=== PATIENT | female | born 1960 | race Caucasian/White ===

== ENCOUNTER → 2020-08-22 15:42 | Outpatient (CLI) | payer OTHER, SELFPAY ==
--- NOTE | ~2020-08-22 | MM_ITS ---
EXAMINATION: MM screening [facility] BI w olga HISTORY: Screening mammogram TECHNIQUE: Craniocaudal and mediolateral oblique 3-D tomosynthesis images were obtained and synthetic 2-D images were generated. CAD analysis was submitted and interpreted. COMPARISON: 06/28/2019, 03/02/2018, 01/30/2017 bilateral digital screening mammogram examinations BREAST PARENCHYMAL COMPOSITION: There are scattered areas of fibroglandular density. FINDINGS: There is no evidence of suspicious mass, calcification, or architectural distortion to sugg est malignancy in either breast. There has been no suspicious interval change. IMPRESSION: 1. No mammographic evidence of malignancy. 2. Recommend routine screening mammography in one year. BI-RADS Category 1: Negative Reviewed, dictated and finalized at location A. NDS CLEANER
== END ==
PROVIDERS: PCP Internal Medicine; Visit Provider Internal Medicine
DX: Z12.31 Encounter for screening mammogram for malignant neoplasm of breast (principal)
CPT/HCPCS: 77063; 77067

== ENCOUNTER → 2021-12-11 15:38 | Outpatient (CLI) | payer OTHER, SELFPAY ==
--- NOTE | ~2021-12-11 | MM_ITS ---
EXAMINATION: MM screening [facility] BI w olga HISTORY: Screening mammogram TECHNIQUE: Craniocaudal and mediolateral oblique 3-D tomosynthesis images were obtained and synthetic 2-D images were generated. CAD analysis was submitted and interpreted. COMPARISON: 08/22/2020, 06/28/2019, 03/02/2018 bilateral screening mammogram examinations BREAST PARENCHYMAL COMPOSITION: There are scattered areas of fibroglandular density. FINDINGS: There is no evidence of suspicious mass, calcification, or architectural distortion to sugg est malignancy in either breast. There has been no suspicious interval change. IMPRESSION: 1. No mammographic evidence of malignancy. 2. Recommend routine screening mammography in one year. BI-RADS Category 1: Negative Reviewed, dictated and finalized at location A.
== END ==
PROVIDERS: PCP Internal Medicine; Visit Provider Internal Medicine
DX: Z12.31 Encounter for screening mammogram for malignant neoplasm of breast (principal)
CPT/HCPCS: 77063; 77067

== ENCOUNTER 2023-05-20 03:18 | Day surgery (SDC) | payer MEDICARE, SELFPAY ==
[2023-05-11 14:16] VITALS: BMI 25.0
--- NOTE | 2023-05-18 09:19 | SUR.PREOP ---
Patient called regarding upcoming procedure. Reviewed preop instructions, appointment times, and procedure prep.
--- NOTE | 2023-05-19 16:33 | PM.HPGS ---
History of Present Illness History of Present Illness Consent: Risks, benefits, and alternatives have been discussed and questions answered. Patient agrees to proceed with procedure. Chief complaint: neoplasm screening Narrative: Gabby Bolivar is a 63 year old female referred for colon cancer screening. She has a family history of colon cancer. She has had polyps removed for self. The last procedure that can find documentation of was 15 years ago here. her last colonoscopy she states was 6 years ago in [place]. Review of Systems Review of Systems: All systems reviewed & are unremarkable except as noted in HPI and below PMFSH Past Medical History Medical History FH: bilateral hip replacements Generalized osteoarthritis of multiple sites Inflammatory arthritis (~2018) Surgical History Surgical History H/O section Family History Family History Father Depression Hypertension Family history of chronic obstructive pulmonary disease Family history of diabetes mellitus in first degree relative Family history of lung cancer Family history of coronary artery disease Social History Social History Smoking packs per day: 1 Smoking cigarettes per day: 20.0 Years smoked: 25 Smoking pack-years: 25.00 Smoking status: Former smoker Tobacco type: cigarettes Second hand tobacco smoke exposure: Yes Smoking end date: 07/13/15 Alcohol intake: current Drinks per week: 5 Substance use type: marijuana Other substance usage details: daily gummie Living arrangements: with family Spiritual care concerns: No Meds Home Medications and Allergies Home Medications Medication Instructions Recorded Confirmed Type cholecalciferol (vitamin D3) 125 125 mcg PO DAILY 09/12/20 05/11/23 History mcg (5,000 unit) capsule multivitamin 1 tablet PO DAILY 09/12/20 05/11/23 History diphenhydramine HCl 25 mg capsule 25 mg PO ONCE PRN Itching 01/29/23 05/11/23 History (Benadryl) simvastatin 5 mg tablet 5 mg PO DAILY #90 tabs 03/13/23 05/11/23 Rx Allergies Allergy/AdvReac Type Severity Reaction Status Date / Time No Known Allergies Allergy Mild Verified 05/20/23 09:26 Exam Resp: Auscultation: clear to auscultation bilaterally Cardio: Rate: regular rate Rhythm: regular rhythm GI: GI Palp: Yes Soft to palpation and No Tenderness to palpation present (GI) Assessment and Plan Assessment and plan (1) Screening for colon cancer: Code(s): Z12.11 - Encounter for screening for malignant neoplasm of colon Status: Acute Assessment and Plan: Colonoscopy with possible biopsy or polypectomy or cautery or injection of substances.
[2023-05-20 09:27] VITALS: BP 155/68; PULSE 63; RESP 20; TEMP 36.2; O2SAT 100; BMI 25.0
[2023-05-20] MEDS: LACTATED RINGERS 1,000 ML 150 ML IV CONT (09:33)
--- NOTE | 2023-05-20 10:20 | WPDANESEPPF ---
Anes - Initial Pre Proc Eval Procedure: Operation Date: 05/20/23 10:45 Proposed Procedures p Screening Colonoscopy - Wesly Zaidi MD Date/Time: 05/20/23 10:20 Surgeon: Wesly Zaidi MD Pre Op Diagnosis: neoplasm screening Patient Data Age: 63 Gender: F Height: 1.65 m Weight: 68.3 kg Last Vital Signs Temp 97.1 F L 05/20/23 09:27 Pulse 63 05/20/23 09:27 Resp 20 05/20/23 09:27 BP 155/68 H 05/20/23 09:27 Pulse Ox 100 05/20/23 09:27 O2 Del Method Room Air 05/20/23 09:27 Allergies Allergy/AdvReac Type Severity Reaction Status Date / Time No Known Allergies Allergy Mild Verified 05/20/23 09:26 Home Medications Medication Instructions Recorded Confirmed Type cholecalciferol (vitamin D3) 125 125 mcg PO DAILY 09/12/20 05/11/23 History mcg (5,000 unit) capsule multivitamin 1 tablet PO DAILY 09/12/20 05/11/23 History diphenhydramine HCl 25 mg capsule 25 mg PO ONCE PRN Itching 01/29/23 05/11/23 History (Benadryl) simvastatin 5 mg tablet 5 mg PO DAILY #90 tabs 03/13/23 05/11/23 Rx Patient hx anesthesia problems: none Family hx anesthesia problems: none Results Review: All pre-operative results and documents have been reviewed as part of the pre-operative evaluation. [facility] Past Medical History Medical History FH: bilateral hip replacements Generalized osteoarthritis of multiple sites Inflammatory arthritis (~2018) Surgical History Surgical History H/O section Family History Family History Father Depression Hypertension Family history of chronic obstructive pulmonary disease Family history of diabetes mellitus in first degree relative Family history of lung cancer Family history of coronary artery disease Social History Social History Smoking packs per day: 1 Smoking cigarettes per day: 20.0 Years smoked: 25 Smoking pack-years: 25.00 Smoking status: Former smoker Tobacco type: cigarettes Second hand tobacco smoke exposure: Yes Smoking end date: 07/13/15 Alcohol intake: current Drinks per week: 5 Substance use type: marijuana Other substance usage details: daily gummie Living arrangements: with family Spiritual care concerns: No Anes - Eval Final PreProcedure Day of Procedure 05/20/23 10:20 Patient weight: normal Heart: regular rate and rhythm Lungs: clear to auscultation Airway: Mallampati scale class II Neurological: alert and oriented Last oral intake: >/= 8 hours ASA classification: II Emergent: no Anesthetic plan: proceed Anesthesia type and monitoring: general GIVS and standard monitoring Results Review: All pre-operative results and documents have been reviewed as part of the pre-operative evaluation. Informed Consent: The patient's anesthetic plan and its attendant risks and benefits were discussed with the patient/family/POA. Questions were solicited and answers provided to the satisfaction of the patient/family/POA.
[2023-05-20 10:47] VITALS: BP 138/71; PULSE 60; RESP 21; O2SAT 100
[2023-05-20 10:57] VITALS: BP 149/74; PULSE 56; RESP 20; O2SAT 100
[2023-05-20 11:07] VITALS: BP 164/73; PULSE 52; RESP 16; O2SAT 100
== END 2023-05-20 11:26 | disposition home or self-care (01) ==
PROVIDERS: PCP Family Medicine; Visit Provider Internal Medicine Gastroenterology
PROC: 0DJD8ZZ Inspection of Lower Intestinal Tract, Via Natural or Artificial Opening Endoscopic (ICD-10-PCS; CPT 45378; principal; 2023-05-20 10:45)
DX: Z12.11 Encounter for screening for malignant neoplasm of colon (principal); K57.30 Diverticulosis of large intestine without perforation or abscess without bleeding; F12.90 Cannabis use, unspecified, uncomplicated; Z86.010 Personal history of colon polyps; Z87.891 Personal history of nicotine dependence; Z80.0 Family history of malignant neoplasm of digestive organs; Z80.1 Family history of malignant neoplasm of trachea, bronchus and lung; Z82.49 Family history of ischemic heart disease and other diseases of the circulatory system
CPT/HCPCS: G0105; J2704; J7120

== ENCOUNTER → 2023-06-15 10:27 | Outpatient (CLI) | payer MEDICARE, SELFPAY ==
--- NOTE | ~2023-06-15 | MM_ITS ---
EXAMINATION: MM screening [facility] BI w olga HISTORY: Screening mammogram TECHNIQUE: Craniocaudal and mediolateral oblique 3-D tomosynthesis images were obtained and synthetic 2-D images were generated. CAD analysis was submitted and interpreted. COMPARISON: 12/11/2021, 08/22/2020, 06/28/2019 BREAST PARENCHYMAL COMPOSITION: There are scattered areas of fibroglandular density. FINDINGS: No suspicious mass, calcification, or architectural distortion are identified in either skyla ast to suggest malignancy. There has been no suspicious interval change. IMPRESSION: 1. No mammographic evidence of malignancy. 2. Recommend routine screening mammography in one year. BI-RADS Category 1: Negative Reviewed, dictated and finalized at location A. IRON WORKER
== END ==
PROVIDERS: PCP Nurse Practitioner; Visit Provider Nurse Practitioner
DX: Z12.31 Encounter for screening mammogram for malignant neoplasm of breast (principal)
CPT/HCPCS: 77063; 77067

== ENCOUNTER → 2023-08-03 11:49 | Outpatient (CLI) | payer MEDICARE, SELFPAY ==
--- NOTE | ~2023-08-03 | XR_ITS ---
XR shoulder RT min 2V 08/03/2023 12:10 Indication: Right shoulder pain Procedure: 4 views right shoulder Comparison: No prior studies for comparison. Findings: There is mild polyarticular osteoarthritis. No fracture or traumatic malalignment. No soft tissue abnormality. No foreign bodies. Impression: 1: Mild polyarticular osteoarthritis. Reviewed, dictated and finalized at location B. BPC ARCHITECT Impression: 1: Mild polyarticular osteoarthritis.
== END ==
PROVIDERS: PCP Nurse Practitioner; Visit Provider Nurse Practitioner
DX: M19.011 Primary osteoarthritis, right shoulder (principal)
CPT/HCPCS: 73030

== ENCOUNTER 2023-10-09 07:33 | Outpatient (CLI) | payer MEDICARE, SELFPAY ==
--- NOTE | ~2023-10-09 | US_ITS ---
US thyroid INDICATION: Abnormal lab works. TECHNIQUE: Real-time sonographic images of the thyroid gland were obtained. COMPARISON: Automated exposure control and iterative reconstruction technique were employed. FINDINGS: The right thyroid lobe measures 6 x 2.6 x 2.2 cm. The left thyroid lobe measures 6.6 x 2.9 x 2.7 cm. Thyroid gland is diffusely heterogeneous. There are multiple bilateral thyroid masses. Lar gest dominant mass in the right lobe is hypoechoic, solid, wider than tall measuring 3.2 x 2.3 x 2 cm , smoothly marginated without echogenic foci, TR 4. Largest dominant mass in the left lobe measures 3 .6 x 2.5 x 2.3 cm and is solid, hypoechoic, wider than tall, smoothly marginated without echogenic fo ci, TR 4. IMPRESSION: 1. Multiple bilateral thyroid masses. Recommend ultrasound-guided fine-needle aspiration biopsy of d ominant bilateral thyroid masses. Reviewed, dictated and finalized at location B. IMPRESSION: 1. Multiple bilateral thyroid masses. Recommend ultrasound-guided fine-needle aspiration biopsy of dominant bilateral thyroid masses.
== END 2023-10-09 07:34 ==
LOC: MICIMG 07:34
PROVIDERS: PCP Nurse Practitioner; Visit Provider Nurse Practitioner
DX: R79.89 Other specified abnormal findings of blood chemistry (principal); E04.2 Nontoxic multinodular goiter
CPT/HCPCS: 76536

== ENCOUNTER 2023-11-04 12:08 | Outpatient (CLI) | payer MEDICARE, SELFPAY ==
--- NOTE | ~2023-11-04 | US_ITS ---
EXAMINATION: US FNA w image guidance DATE: 11/04/2023 13:38 INDICATION: Nontoxic single thyroid nodule TECHNIQUE: A time-out was performed to verify the patient's name, date of , and procedure to be performed . The procedure and its benefits and risks were discussed with the patient. Risks specifically discus sed included bleeding and infection. The patient understood the risks and agreed to proceed. The neck was prepped and draped in the usual sterile manner. Attention was first turned to the right thyroid nodule. 6 mL 1% lidocaine was used for local anesthesia. 6 passes were made with a 25G needle into the lesion. Appropriate needle location was documented with continuous sonographic guidance. Attenti on was then turned to the contralateral left thyroid nodule. An additional 4 mm of 1% lidocaine was u sed for local anesthesia. 6 passes were made with a 25G needle into the lesion. Appropriate needle l ocation was documented with continuous sonographic guidance. Sterile bandages were applied. There we re no immediate complications. FINDINGS: Grayscale ultrasound images demonstrate biopsy needles advanced into a 3.3 cm mass at the mid to infe rior right thyroid lobe and subsequently into a 3.2 cm mass at the mid to inferior left thyroid lobe. IMPRESSION: 1. Successful ultrasound-guided fine needle aspiration of a 3.3 cm TI RADS 4 right thyroid mass. 2. Successful ultrasound guided fine needle aspiration of a 3.2 cm TI RADS 4 left thyroid mass. Reviewed, dictated and finalized at location A. IMPRESSION: 1. Successful ultrasound-guided fine needle aspiration of a 3.3 cm TI RADS 4 r ight thyroid mass. 2. Successful ultrasound guided fine needle aspiration of a 3.2 cm TI RADS 4 le ft thyroid mass.
--- NOTE | ~2023-11-04 | US_ITS ---
Please refer to ultrasound Y needle aspiration report dated 11/04/2023 for details. Reviewed, dictated and finalized at location B.
== END 2023-11-04 12:09 | disposition home or self-care (01) ==
LOC: ANHIMG 12:09
PROVIDERS: PCP Family Medicine; Visit Provider Family Medicine
DX: E04.1 Nontoxic single thyroid nodule (principal)
CPT/HCPCS: 10005; 10006; 88172; 88173; 88305

== ENCOUNTER 2024-02-01 09:33 | Outpatient (CLI) | payer MEDICARE, SELFPAY ==
[2024-02-01 14:48] LABS: Hematocrit 42.3 % (37.0-47.0); Hemoglobin 14.7 g/dL (12.0-15.0); Mean Corpuscular HGB Conc 34.8 g/dl (32-36); Mean Corpuscular Hemoglobin 32.9 pg (26-34); Mean Corpuscular Volume 94.6 fl (80-100); Mean Platelet Volume 12.5 fl (7.4-10.4); Platelet Count Result 203 k/mm3 (150-375); Red Blood Count 4.47 M/mm3 (4.2-5.4); Red Cell Distribution Width 13.2 % (11.5-14.5); White Blood Count 5.7 K/mm3 (4.5-10.0)
[2024-02-01 14:49] LABS: Appearance Urine Clear (Clear); Bacteria Urine None Seen /hpf; Bilirubin Urine Negative (Negative); Blood Urine Negative (Negative); Color Urine Yellow (Yellow); Glucose Urine UA Negative (Negative); Ketones Urine Negative (Negative); Leukocyte Esterase Ur Trace LEU/UL (Negative); Nitrate Urine Negative (Negative); Non Pathogenic Casts 0-2; Protein Urine Negative (Negative); RBC Urine 0-2 /hpf (0-2); Specific Grav Ur 1.007 (1.001-1.035); Squamous Epithelial Cell Urine None Seen /hpf (Few); Urobilinogen Urine 0.2 mg/dL (<2.0); WBC Urine 0-5 /hpf (0-3); pH Urine 5.5 (5.0-9.0)
[2024-02-01 14:50] LABS: Add Urine Microscopic? YES
[2024-02-01 15:28] LABS: Vitamin D 25 Hydroxy 84.1 ng/mL
[2024-02-01 15:57] LABS: Alanine Aminotransferase 23 U/L (6-35); Albumin Level 4.4 g/dL (3.5-5.1); Alkaline Phosphatase 67 U/L (38-126); Anion Gap 9 mmol/L (4-12); Aspartate Amino Transferase 39 U/L (14-36); Bilirubin,Total 0.5 mg/dL (0.2-1.3); Blood Urea Nitrogen 27 mg/dL (7-17); Calcium 9.4 mg/dL (8.4-10.2); Carbon Dioxide 27 mmol/L (22-30); Chloride 102 mmol/L (98-107); Cholesterol 242 mg/dL (0-200); Estimated Glomerular Filt Rate > 60; Glucose 115 mg/dL (65-110); HDL Direct 74 mg/dL; Potassium 4.3 mmol/L (3.4-5.0); Sodium 138 mmol/L (137-145); Triglycerides 67 mg/dL (<150)
[2024-02-01 16:10] LABS: LDL Cholesterol Direct 141 mg/dL
[2024-02-01 16:20] LABS: Thyroid Stimulating Hormone 0.367 uIU/mL (0.465-4.680)
[2024-02-01 16:57] LABS: Hemoglobin A1C 6.1 % (<5.7)
== END 2024-02-01 09:34 | disposition home or self-care (01) ==
LOC: ANHGOSHLAB 09:35
PROVIDERS: PCP Family Medicine; Visit Provider Nurse Practitioner
DX: Z00.00 Encounter for general adult medical examination without abnormal findings (principal); Z79.899 Other long term (current) drug therapy; E55.9 Vitamin D deficiency, unspecified; R73.01 Impaired fasting glucose; R73.03 Prediabetes
CPT/HCPCS: 36415; 80053; 80061; 81001; 82306; 83036; 84443; 85027

== ENCOUNTER 2024-06-08 09:06 | Outpatient (CLI) | payer MEDICARE, SELFPAY ==
[2024-06-08 21:15] LABS: Alanine Aminotransferase 30 U/L (6-35); Albumin Level 4.2 g/dL (3.5-5.1); Alkaline Phosphatase 68 U/L (38-126); Anion Gap 2 mmol/L (4-12); Aspartate Amino Transferase 32 U/L (14-36); Bilirubin,Total 0.6 mg/dL (0.2-1.3); Blood Urea Nitrogen 18 mg/dL (7-17); Calcium 9.1 mg/dL (8.4-10.2); Carbon Dioxide 29 mmol/L (22-30); Chloride 108 mmol/L (98-107); Cholesterol 171 mg/dL (0-200); Estimated Glomerular Filt Rate > 60; Glucose 123 mg/dL (65-110); HDL Direct 78 mg/dL; Potassium 4.3 mmol/L (3.4-5.0); Sodium 139 mmol/L (137-145); Triglycerides 61 mg/dL (<150)
[2024-06-08 21:27] LABS: LDL Cholesterol Direct 66 mg/dL
[2024-06-08 21:39] LABS: Hemoglobin A1C 6.2 % (<5.7)
[2024-06-08 22:55] LABS: Thyroid Stimulating Hormone 0.182 uIU/mL (0.465-4.680)
[2024-06-08 23:08] LABS: Free T4 Free Thyroxine 0.94 ng/mL (0.78-2.19); Vitamin D 25 Hydroxy 54.8 ng/mL
== END 2024-06-08 09:07 | disposition home or self-care (01) ==
LOC: ANHGOSHLAB 09:08
PROVIDERS: PCP Family Medicine; Visit Provider Nurse Practitioner
DX: E78.5 Hyperlipidemia, unspecified (principal); E55.9 Vitamin D deficiency, unspecified; R73.01 Impaired fasting glucose; R79.89 Other specified abnormal findings of blood chemistry; Z79.899 Other long term (current) drug therapy
CPT/HCPCS: 36415; 80053; 80061; 82306; 83036; 84439; 84443

== ENCOUNTER 2024-06-17 10:08 | Outpatient (CLI) | payer MEDICARE, SELFPAY ==
--- NOTE | ~2024-06-17 | MM_ITS ---
EXAMINATION: MM screening [facility] BI w olga HISTORY: Screening TECHNIQUE: Craniocaudal and mediolateral oblique 3-D tomosynthesis images were obtained and synthetic 2-D images were generated. CAD analysis was submitted and interpreted. COMPARISON: Comparison to multiple prior studies sequentially, with oldest reviewed study dated 01/30. BREAST PARENCHYMAL COMPOSITION: Not dense: There are scattered areas of fibroglandular density. FINDINGS: There is no evidence of suspicious mass, calcification, or architectural distortion to sugg est malignancy in either breast. There has been no suspicious interval change. IMPRESSION: 1. No mammographic evidence of malignancy. 2. Recommend routine screening mammography in one year. BI-RADS Category 1: Negative Reviewed, dictated and finalized at location B. M FRAME OPERATOR
== END 2024-06-17 10:09 | disposition home or self-care (01) ==
LOC: MICIMG 10:09
PROVIDERS: PCP Family Medicine; Visit Provider Nurse Practitioner
DX: Z12.31 Encounter for screening mammogram for malignant neoplasm of breast (principal)
CPT/HCPCS: 77063; 77067

== ENCOUNTER 2025-01-04 09:10 | Outpatient (CLI) | payer MEDICARE, SELFPAY ==
--- NOTE | ~2025-01-04 | XR_ITS ---
EXAM/PROCEDURE: XR chest 2V - 01/04/2025 9:13 CDT HISTORY: 64 years old Female with SOB x several mos; prev smoker TECHNIQUE: Two view(s) of the chest. COMPARISON: None available. FINDINGS: LUNGS/ PLEURA: No focal consolidation. No appreciable pneumothorax or large pleural effusion. HEART/ MEDIASTINUM: Heart appears normal in size. BONES: No acute osseous abnormality. OTHER: Visualized upper abdomen is unremarkable. IMPRESSION: No acute process. Reviewed, dictated and finalized at location A. IMPRESSION: No acute process.
== END 2025-01-04 09:11 | disposition home or self-care (01) ==
LOC: GOSHIMG 09:11
PROVIDERS: PCP Family Medicine; Visit Provider Nurse Practitioner
DX: R06.02 Shortness of breath (principal); Z87.891 Personal history of nicotine dependence
CPT/HCPCS: 71046

== ENCOUNTER 2025-01-04 09:25 | Outpatient (CLI) | payer MEDICARE, SELFPAY ==
[2025-01-04 18:59] LABS: Hematocrit 44.3 % (37.0-47.0); Hemoglobin 14.2 g/dL (12.0-15.0); Mean Corpuscular HGB Conc 32.1 g/dl (32-36); Mean Corpuscular Hemoglobin 29.7 pg (26-34); Mean Corpuscular Volume 92.7 fl (80-100); Mean Platelet Volume 12.8 fl (7.4-10.4); Platelet Count Result 197 k/mm3 (150-375); Red Blood Count 4.78 M/mm3 (4.2-5.4); Red Cell Distribution Width 13.2 % (11.5-14.5)
[2025-01-04 19:31] LABS: Free T4 Free Thyroxine 0.89 ng/dL (0.78-2.19); Vitamin D 25 Hydroxy 68.2 ng/mL
[2025-01-04 19:34] LABS: Alanine Aminotransferase 31 U/L (6-35); Albumin Level 4.3 g/dL (3.5-5.1); Alkaline Phosphatase 64 U/L (38-126); Anion Gap 8 mmol/L (4-12); Aspartate Amino Transferase 34 U/L (14-36); Bilirubin,Total 0.5 mg/dL (0.2-1.3); Blood Urea Nitrogen 19 mg/dL (7-17); Calcium 9.3 mg/dL (8.4-10.2); Carbon Dioxide 27 mmol/L (22-30); Chloride 106 mmol/L (98-107); Cholesterol 199 mg/dL (0-200); Estimated Glomerular Filt Rate > 60; Glucose 126 mg/dL (65-110); HDL Direct 66 mg/dL; Potassium 4.7 mmol/L (3.4-5.0); Sodium 141 mmol/L (137-145); Total Protein 6.9 g/dL (6.3-8.2); Triglycerides 85 mg/dL (<150)
[2025-01-04 19:45] LABS: LDL Cholesterol Direct 85 mg/dL
[2025-01-04 20:10] LABS: Thyroid Stimulating Hormone 0.359 uIU/mL (0.465-4.680)
[2025-01-04 21:29] LABS: Hemoglobin A1C 6.2 % (<5.7)
== END 2025-01-04 09:26 | disposition home or self-care (01) ==
PROVIDERS: PCP Family Medicine; Visit Provider Nurse Practitioner
DX: R42 Dizziness and giddiness (principal); E05.90 Thyrotoxicosis, unspecified without thyrotoxic crisis or storm; E78.5 Hyperlipidemia, unspecified; R73.01 Impaired fasting glucose; R79.89 Other specified abnormal findings of blood chemistry; E55.9 Vitamin D deficiency, unspecified
CPT/HCPCS: 36415; 80053; 80061; 82306; 83036; 84439; 84443; 85027

== ENCOUNTER 2025-01-23 09:52 | Outpatient (CLI) | payer MEDICARE, SELFPAY ==
--- OUTSIDE RECORDS SUMMARY | 2025-01-23 10:03 | XMS_ITS | Clinical Summary ---
Author Organization [facility] Address [address] [facility], [address] [address] Phone Care Team Providers Care Last Dipper Name Role Phone Luis Gil MD Primary Care Provider [phone] Allergies No known active allergies Medications diphenhydrAMINE (BENADRYL) 25 MG Capsule Take 25 mg by mouth daily as needed. For sinus allergies Active Melatonin 10 MG Capsule Take 1 Cap by mouth nightly as needed. Active other Take 1 Tab by mouth daily. Aminoplex Vitamin Active other Take 1 Tab by mouth daily. Multiplex vitamin Active Family History Medical History Relation Name Comments Chronic Obstructive Pulmonary Disease Father Lung Cancer Father Diabetes Mother Heart Disease Mother Hypertension Mother Colon Cancer Paternal Grandmother Relation Name Status Comments Father Mother Alive Paternal Grandmother Social History Tobacco Use Types Packs/Day Years Used Date Smoking Tobacco: Former Cigarettes 1 20 0 04/05/1983 - 04/05/2003 Smokeless Tobacco: Never Alcohol Use Standard Drinks/Week Comments Yes 0 (1 standard drink = 0.6 oz pur e alcohol) Occasionally Comments Unknown Sex and Gender Information Value Date Recorded Sex Assigned at Not on file Legal Sex Female 12:32 AM CDT Gender Identity Not on file Sexual Orientation Not on file Last Filed Vital Signs Vital Sign Reading Time Taken Comments Blood Pressure 107/72 04/05/2018 6:29 AM CDT Pulse 49 04/05/2018 6:29 AM CDT Temperature 36 C (96.8 F) 04/05/2018 6:29 AM CDT Respiratory Rate 17 04/05/2018 6:29 AM CDT Oxygen Saturation 98% 04/05/2018 6:29 AM CDT Inhaled Oxygen Concentration - - Weight 68 kg (150 lb) 04/05/2018 5:24 AM CDT Height 167.6 cm (5' 6) 04/05/2018 5:24 AM CDT Body Mass Index 24.21 04/05/2018 5:24 AM CDT Plan of Treatment Health Maintenance Due Date Last Done Comments DEXA Bone Density 1960 Hepatitis C Virus (HCV) Screening 1960 TdaP Immunization 1960 Cologuard 02/08/2008 Immunochemical Fecal Occult Blood 02/08/2008 Mammogram 02/08/2008 Pneumococcal Immunization (5 0+ years) (1 of 1 - PCV) 02/08/2008 Zoster Immunization (1 of 2) 02/08/2008 Colonoscopy 04/05/2023 04/05/2018 Colorectal Cancer Screening 04/05/2023 Influenza Immunization (#1) 2024 SARS-COV-2 Immunization ( - 2023- season) 2024 Respiratory Syncytial Virus (RSV) Immunization (Adult) (1 - 1-dose 75+ series) 2033 Hepatitis B Immunization Aged Out No longer eligible based on patient's age to complete this topic Meningococcal Immunization (ACWY) Aged Out No longer eligible based on patient's age to complete this topic Rotavirus Immunization Aged Out No lo nger eligible based on patient's age to complete this topic Care Teams Last Dipper Relationship Specialty Start Date End Date Luis Gil MD PCP - General Internal Medicine 02/03/18
--- OUTSIDE RECORDS SUMMARY | 2025-01-23 10:03 | XMS_ITS | Referral Summary ---
Author Organization [facility] Address [address] [place] [address] Care Team Providers Care Household Appliance Assembler Name Role Phone Barron Castorena MD Primary Care Provider [phone] Allergies No known active allergies Medications ibuprofen (ADVIL,MOTRIN) 200 mg tab/cap Take 200 mg by mouth every 6 (six) hours as needed for pain Active cholecalciferol , vitamin D3, (VITAMIN D3 ORAL)Indication s:supplement Take 1 tablet/capsul e by mouth every morning Active ascorbic acid (ascorbic acid with chelsi hips) 500 mg tablet,chewable Indications:sup plement Take 500 mg by mouth every morning Active diphenhydrAMINE (BENADRYL) 25 mg capsuleIndicati ons:allergies Take 25 mg by mouth every morning Active ketorolac (TORADOL) 10 mg tablet Take 1 tablet (10 mg total) by mouth every 6 (six) hours as needed for pain 16 tablet 12/14/2019 Active promethazine (PHENERGAN) 25 mg tablet Take 1 tablet (25 mg total) by mouth every 6 (six) hours as needed for nausea or vomiting 30 tablet 12/14/2019 Active aspirin 325 mg tablet Take 1 tablet (325 mg total) by mouth daily 30 tablet 12/14/2019 Active Active Problems Problem Noted Date Diagnosed Date Hallux rigidus of left foot 11/30/2019 Overview (11/30/2019): Added automatically from request for surgery [id number] Surgical follow-up care 06/06/2014 Arthralgia of hip 10/27/2013 Social History Tobacco Use Types Packs/Day Years Used Date Smoking Tobacco: Former Cigarettes 1 39 1 975 - 2014 Smokeless Tobacco: Never Alcohol Use Standard Drinks/Week Comments Yes 5 (1 standard drink = 0.6 oz pur e alcohol) Comments No Sex and Gender Information Value Date Recorded Sex Assigned at Not on file 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 Gender Identity Not on file Sexual Orientation Not on file Last Filed Vital Signs Vital Sign Reading Time Taken Comments Blood Pressure 152/61 12/14/2019 11:40 AM CDT Pulse 62 12/14/2019 11:40 AM CDT Temperature 36.4 C (97.5 F) 12/14/2019 11:20 AM CDT Respiratory Rate 18 12/14/2019 11:40 AM CDT Oxygen Saturation 97% 12/14/2019 11:40 AM CDT Inhaled Oxygen Concentration - - Weight 72.6 kg (160 lb) 03/01/2020 10:54 AM CDT Height 170.2 cm (5' 7) 03/01/2020 10:54 AM CDT Body Mass Index 25.06 03/01/2020 10:54 AM CDT Plan of Treatment Not on file Medical Devices Implanted Type Area Horse And Wagon Driver Device Identifier Shelf Expiration Date Model / Serial / Lot Lifenet [id number] Arthroflex [id number] Allograft Thk2.5-3.5mm Graft Soft Tissue - [id number] Implanted:Qty: 1 on 12/14/2019 by Curtis Palma MD at [facility] Left: Foot Lifenet 06/20/2022 [id number] / / [id number] [employer] Ar-1530ps Tenodesis 3mm 8mm Handle Accounting Intern Vent Foot Ankle Screw - [id number] Implanted:Qty: 2 on 12/14/2019 by Curtis Palma MD at [facility] Left: Foot [employer] 07/12/2023 AR-1530PS / / [employer] Ar-1530ds Bio-Tenodesis Fiberwire 2.5mm Needle Cannulated Drill Suture Pass - [id number] Implanted:Qty: 1 on 12/14/2019 by Curtis Palma MD at [facility] Left: Foot [employer] 07/12/2024 AR-1530DS / / Insurance Care Teams Household Appliance Assembler Relationship Specialty Start Date End Date Barron Castorena MD [address] [place] [address] PCP - General Internal Medicine 08/03/19
--- OUTSIDE RECORDS SUMMARY | 2025-01-23 10:03 | XMS_ITS | Clinical Summary ---
Author Organization [facility] Address [address] [place] [address] Care Team Providers Care Informatics Coordinator Name Role Phone Barron Castorena MD Primary Care Provider [phone] Allergies No known active allergies Medications ibuprofen [...] (11/30/2019): Added automatically from request for surgery [id number] Surgical follow-up care 06/06/2014 Arthralgia of hip 10/27/2013 Surgical History Surgery Date Site/Laterality Comments HIP SURGERY 05/05/[address] Fisher SECTION 1985 and 1988 HYSTERECTOMY 07/13/1990 - 07/12/1991 Medical History Medical History Date Comments Arthritis PONV (postoperative nausea and vomiting) Family History Medical History Relation Name Comments Arthritis Father Family history of arthritis - (Added by TW Conv) Cancer Father Family history of malignant neoplasm - (Added by TW Conv) Diabetes Father Family history of diabetes mellitus - (Added by TW Conv) Heart disease Father Family history of cardiac disorder - (Added by TW Conv) Hypertension Father Family history of hypertension - (Added by TW Conv) Lung disease Father Lung trouble - (Added by TW Conv) Arthritis Mother Family history of arthritis - (Added by TW Conv) Diabetes Mother Family history of diabetes mellitus - (Added by TW Conv) Heart attack Mother Heart disease Mother Family history of cardiac disorder - (Added by TW Conv) Hypertension Mother Family history of hypertension - (Added by TW Conv) Relation Name Status Comments Father Mother Social History Tobacco Use Types Packs/Day Years Used Date Smoking Tobacco: Former Cigarettes 1 39 1 975 - 2013 Smokeless Tobacco: Never Alcohol Use Standard Drinks/Week Comments Yes 5 (1 standard drink = 0.6 oz pur e alcohol) Comments No Sex and Gender Information Value Date Recorded Sex Assigned at Not on file 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 Gender Identity Not on file Sexual Orientation Not on file Obstetrics History Last Filed Vital Signs Vital Sign Reading [...] on file Medical Devices Implanted Type Area Programmer Or Analyst Device Identifier Shelf Expiration Date Model / Serial / Lot Lifenet [id number] Arthroflex [id number] Allograft Thk2.5-3.5mm Graft Soft Tissue - [id number] Implanted:Qty: 1 on 12/14/2019 by Curtis Palma MD at [facility] Left: Foot Lifenet 06/20/2022 [id number] / / [id number] [employer] Ar-1530ps Tenodesis 3mm 8mm Handle Instructor Product Inspection Vent Foot Ankle Screw - [id number] Implanted:Qty: 2 on 12/14/2019 by Curtis Palma MD at [facility] Left: Foot [employer] 07/12/2023 AR-1530PS / / [employer] Ar-1530ds Bio-Tenodesis Fiberwire 2.5mm Needle Cannulated Drill Suture Pass - [id number] Implanted:Qty: 1 on 12/14/2019 by Curtis Palma MD at [facility] Left: Foot [employer] 07/12/2024 AR-1530DS / / Insurance Care Teams Informatics Coordinator Relationship Specialty Start Date End Date Barron Castorena MD [address] [place] [address] PCP - General Internal Medicine 08/03/19
--- OUTSIDE RECORDS SUMMARY | 2025-01-23 10:03 | XMS_ITS | Continuity of Care Document ---
Author Organization [facility] Address [address] [place] [address] Phone Care Team Providers Care Turbine Subassembler Name Role Phone Casarez OD, Tru Unavailable Unavailable Advance Directives Directive Yes / No Effective Date File Name No Information Encounters Encounter Description Practice Location Reason(s) For Visit Diagnoses Date Provider Providers Copied on Encounter [facility], [address], [place], [place], [id number], [place] tel:[phone] [facility] No Information Sep- 7-200 1 Casarez OD Tru. [address] [facility] [address] , [address], [place], [address], [place]. tel:[phone] Family History Family Member Type Diagnosis Age At Onset No Information Payers Payer name Insurance type Covered democrat ID Authoriza tion(s) No Information Social History Type Description Quantity Date Captured Comments Sex Female Smoking Status No Information Chief Complaint And Reason For Visit No Information Reason For Referral Reason For Referral No Information History Of Present Illness Encounter Date Complaint History Of Prese nt Illness No Information Functional Status Date Functional Assessmen t No Information Instructions Date Instruction Additional Infor mation No Information Assessments Type Assessment Date No Information Patient Care Teams Name Effective Dates (start - stop) Status Members No Information
--- NOTE | 2025-02-08 12:04 | WPDHOLTEREM ---
Holter/Event Monitor Holter/Event Monitor Date of procedure: 01/23/25 Holter/Event Procedure: 3-7 Day Holter Monitor Indications: Dizziness Conclusion: 1. 5 days holter monitor on 01/23/25. 2. Underlying rhythm is sinus rhythm. HR range 46-97 bpm; average HR 64 bpm. HR at 46 bpm was on 01/26/25 at 4:07 am. 3. There are occasional premature supraventricular complexes, rare supraventricular couplets. No supraventricular tachycardia. 4. There are rare premature ventricular complexes, rare ventricular couplets, and longest ventricular trigeminy is 6.6 seconds. No ventricular tachycardia. 5. No significant pauses greater than 3 seconds. There is intermittent left bundle branch block. 6. Patient reports 13 episodes of symptoms of lightheadedness, shortness of breath, chest pain which demonstrate sinus rhythm, HR range 56-78 bpm with intermittent LBBB and with 6 episodes with PAC's and PVC's.
== END 2025-01-23 09:53 | disposition home or self-care (01) ==
LOC: ANHCARD 09:57
PROVIDERS: PCP Family Medicine; Visit Provider Nurse Practitioner
DX: R42 Dizziness and giddiness (principal); I49.1 Atrial premature depolarization; I49.3 Ventricular premature depolarization; R00.8 Other abnormalities of heart beat; I44.7 Left bundle-branch block, unspecified
CPT/HCPCS: 93242

== ENCOUNTER 2025-01-25 06:53 | Outpatient (CLI) | payer MEDICARE, SELFPAY ==
--- NOTE | ~2025-01-25 | NM_ITS ---
NM thyroid scan w uptake 01/29/2025 10:15 CDT INDICATION: Vitamin D deficiency TECHNIQUE: Following administration of 0.5 to millicuries 123 sodium iodide, multiple images of the t hyroid gland were obtained. The 24-hour thyroid uptake value was obtained.] COMPARISON: Ultrasound dated 01/25/2025 FINDINGS: The images demonstrate normal configuration of the thyroid gland and homogeneous distributi on of the radionuclide. No focal areas of increased or decreased activity are identified. 24 hour thyroid uptake is 31.8%, which is within the normal range of 7-30%. IMPRESSION: 1: Normal thyroid scan. 2: Elevated 24 hour iodine- 123 uptake. Reviewed, dictated and finalized at location A.
--- OUTSIDE RECORDS SUMMARY | 2025-01-25 06:57 | XMS_ITS | Clinical Summary ---
Author Organization [facility] Address [address] [facility], [address] [address] Phone Care Team Providers Care Assembler Crimper Name Role Phone Luis Gil MD Primary Care Provider [phone] Allergies No known active allergies Medications diphenhydrAMINE [...] age to complete this topic Care Teams Assembler Crimper Relationship Specialty Start Date End Date Luis Gil MD PCP - General Internal Medicine 02/03/18
--- OUTSIDE RECORDS SUMMARY | 2025-01-25 06:57 | XMS_ITS | Continuity of Care Document ---
Author Organization [facility] Address [address] [place] [address] Phone Care Team Providers Care Coupon Manifest Clerk Name Role Phone Casarez OD, Tru Unavailable Unavailable Advance Directives Directive Yes / No Effective Date File Name No Information Encounters Encounter Description Practice Location Reason(s) For Visit Diagnoses Date Provider Providers Copied on Encounter [facility], [address], [place], [place], [id number], [place] tel:[phone] SEC [facility] No Information Sep- 7-200 1 Casarez OD Tru. [address] , [address], [place], [address], [place]. tel:[phone] Family History Family Member Type Diagnosis Age [...]
--- OUTSIDE RECORDS SUMMARY | 2025-01-25 06:57 | XMS_ITS | Referral Summary ---
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 Gender Identity Not on file Sexual Orientation [...] on file Medical Devices Implanted Type Area Baked Goods Stock Clerk Device Identifier Shelf Expiration Date Model / Serial / Lot Lifenet [id number] Arthroflex [id number] Allograft Thk2.5-3.5mm Graft Soft Tissue - [id number] Implanted:Qty: 1 on 12/14/2019 by Curtis Palma MD at [facility] Left: Foot Lifenet 06/20/2022 [id number] / / [id number] Ar[employer] Ar-1530ps Tenodesis 3mm 8mm Handle Shipping Processor Vent Foot Ankle Screw - [id number] Implanted:Qty: 2 on 12/14/2019 by Curtis Palma MD at [facility] Left: Foot Ar[employer] 07/12/2023 AR-1530PS / / Ar[employer] Ar-1530ds Bio-Tenodesis Fiberwire 2.5mm Needle Cannulated Drill Suture Pass - [id number] Implanted:Qty: 1 on 12/14/2019 by Curtis Palma MD at [facility] Left: Foot [employer] 07/12/2024 AR-1530DS / / Insurance [facility] H[facility]/PPO Address: [place] [address] [facility] [place]: [place] [address] Care Teams Single Spindle Screw Machine Operator Relationship Specialty Start Date End Date Barron Castorena MD [address] [place] [address] PCP - General Internal Medicine 08/03/19
--- OUTSIDE RECORDS SUMMARY | 2025-01-25 06:57 | XMS_ITS | Patient Health Record ---
Author Organization [facility] Address [address] [place], [place] [address] Care Team Providers Care Economics Instructor Name Role Phone SUSSY COOK Unavailable [phone] Luis Gil Unavailable Unavailable Reason For Referral No Information Plan Of Treatment No Information Insurance Providers Payer Name Payer Address Payer Phone Subscriber Number Group Number Insured Name Patient Relationship to Insured Coverage Start Date Coverage End Date [facility] [address] [address] [place] [id number] OPAL SHERIDAN Self - patient is the insured
--- OUTSIDE RECORDS SUMMARY | 2025-01-25 06:57 | XMS_ITS | Clinical Summary ---
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 Gender Identity Not on file Sexual Orientation [...] on file Medical Devices Implanted Type Area Bag Worker Device Identifier Shelf Expiration Date Model / Serial / Lot Lifenet [id number] Arthroflex [id number] Allograft Thk2.5-3.5mm Graft Soft Tissue - [id number] Implanted:Qty: 1 on 12/14/2019 by Curtis Palma MD at [facility] Left: Foot Lifenet 06/20/2022 [id number] / / [id number] [employer] Ar-1530ps Tenodesis 3mm 8mm Handle Hospice Home Care Coordinator Vent Foot Ankle Screw - [id number] Implanted:Qty: 2 on 12/14/2019 by Curtis Palma MD at [facility] Left: Foot [employer] 07/12/2023 AR-1530PS / / [employer] Ar-1530ds Bio-Tenodesis Fiberwire 2.5mm Needle Cannulated Drill Suture Pass - [id number] Implanted:Qty: 1 on 12/14/2019 by Curtis Palma MD at [facility] Left: Foot [employer] 07/12/2024 AR-1530DS / / Insurance Care Teams Pattern Chain Builder Relationship Specialty Start Date End Date Barron Castorena MD [address] [place] [address] PCP - General Internal Medicine 08/03/19
== END 2025-01-25 06:54 | disposition home or self-care (01) ==
PROVIDERS: PCP Family Medicine; Visit Provider Internal Medicine
DX: E55.9 Vitamin D deficiency, unspecified (principal); E66.3 Overweight; R79.89 Other specified abnormal findings of blood chemistry; R73.01 Impaired fasting glucose; E78.5 Hyperlipidemia, unspecified; E04.1 Nontoxic single thyroid nodule; R73.03 Prediabetes; E05.90 Thyrotoxicosis, unspecified without thyrotoxic crisis or storm; R74.8 Abnormal levels of other serum enzymes; E04.2 Nontoxic multinodular goiter; Z12.11 Encounter for screening for malignant neoplasm of colon
CPT/HCPCS: 78014; A9516

== ENCOUNTER 2025-01-25 08:38 | Outpatient (CLI) | payer MEDICARE, SELFPAY ==
--- NOTE | ~2025-01-25 | US_ITS ---
Thyroid ultrasound. Clinical History: Vitamin D deficiency COMPARISON: 10/09/2023 Findings: Real-time sonography of the thyroid gland was performed. The right lobe measures 6.2 x 2.9 x 2.6 cm. The left lobe measures 6.6 x 3.0 x 2.2 cm. The isthmus is 4 mm in AP diameter. There is a 3.0 x 2.5 x 2.2 cm solid hypoechoic nodule at the left lower pole. There is a 2.0 x 1.7 x 1.8 cm heterogeneously hypoechoic nodule at the left midpole. There is a 1.9 x 1.2 x 3.0 cm hypoechoic solid nodule at the posterior right mid to upper pole. There is a 1.3 cm cystic nodule at the anterior right midpole. There is a 1.1 cm hypoechoic circumscribed nodule at the right upper pole. There is a 5 mm hypoechoic nodule in the isthmus. Impression: Bilateral thyroid nodules are similar to prior exam.. Reviewed, dictated and finalized at [facility]. Impression: Bilateral thyroid nodules are similar to prior exam..
== END 2025-01-25 08:39 | disposition home or self-care (01) ==
LOC: MICIMG 08:39
PROVIDERS: PCP Family Medicine; Visit Provider Internal Medicine
DX: E55.9 Vitamin D deficiency, unspecified (principal); E04.2 Nontoxic multinodular goiter; E05.90 Thyrotoxicosis, unspecified without thyrotoxic crisis or storm; R73.03 Prediabetes; E04.1 Nontoxic single thyroid nodule; E78.5 Hyperlipidemia, unspecified; R73.01 Impaired fasting glucose; R79.89 Other specified abnormal findings of blood chemistry; E66.3 Overweight
CPT/HCPCS: 76536

== ENCOUNTER 2025-02-06 07:37 | Outpatient (CLI) | payer MEDICARE, SELFPAY ==
--- OUTSIDE RECORDS SUMMARY | 2025-02-06 07:42 | XMS_ITS | Patient Health Record ---
Author Organization [facility] Address [address] [place], [place] [address] Care Team Providers Care Transformation Specialist Name Role Phone SUSSY COOK Unavailable [phone] Luis Gil Unavailable Unavailable Reason For Referral No Information Plan Of Treatment No Information Insurance Providers Payer Name Payer Address Payer Phone Subscriber Number Group Number Insured Name Patient Relationship to Insured Coverage Start Date Coverage End Date [facility] [address] [address] [place] [id number] OPAL SHERIDAN Self - patient is the insured
--- OUTSIDE RECORDS SUMMARY | 2025-02-06 07:43 | XMS_ITS | Continuity of Care Document ---
Author Organization [facility] Address [address] [place] [address] Phone Care Team Providers Care Infusion Rn Name Role Phone Casarez OD, Tru Unavailable Unavailable Advance Directives Directive Yes / No Effective Date File Name No Information Encounters Encounter Description Practice Location Reason(s) For Visit Diagnoses Date Provider Providers Copied on Encounter [facility], [address], [place], [place], [id number], [place] tel:[phone] SEC [facility] No Information Sep- 7-200 1 Casarez OD Tru. [address] [facility] [address] , [address], [place], [address], [place]. tel:[phone] Family History Family Member Type Diagnosis Age At Onset No Information Payers Payer name Insurance type Covered green party ID Authoriza tion(s) No Information Social History [...]
--- OUTSIDE RECORDS SUMMARY | 2025-02-06 07:43 | XMS_ITS | Clinical Summary ---
Author Organization [facility] Address [address] [facility], [address] [address] Phone Care Team Providers Care Nail Maker Name Role Phone Luis Gil MD Primary Care Provider [phone] Allergies No known active allergies Medications diphenhydrAMINE [...] Health Maintenance Due Date Last Done Comments Hepatitis C Virus (HCV) Screening 1960 TdaP Immunization 1960 Cologuard 2003 Immunochemical Fecal Occult Blood 2003 Pneumococcal Immunization (5 0+ years) (1 of 1 - PCV) 02/08/2008 Zoster Immunization (1 of 2) 02/08/2008 Colonoscopy 04/05/2023 04/05/2018 Colorectal Cancer Screening 04/05/2023 SARS-COV-2 Immunization (1 - season) 2024 Influenza Immunization (#1) 2025 Respiratory Syncytial Virus (RSV) Immunization (Adult) (1 - 1-dose 75+ series) 2033 Hepatitis B Immunization Aged Out No longer eligible based on patient's age to complete this topic Human Papillomavirus (HPV) Immunization Aged Out No longer eligible b ased on patient's age to complete this topic Meningococcal Immunization (ACWY) Aged Out No longer eligible based on patient's age to complete this topic Rotavirus Immunization Aged Out No lo nger eligible based on patient's age to complete this topic Care Teams Nail Maker Relationship Specialty Start Date End Date Luis Gil MD PCP - General Internal Medicine 02/03/18
--- OUTSIDE RECORDS SUMMARY | 2025-02-06 07:43 | XMS_ITS | Clinical Summary ---
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 Gender Identity Not on file Sexual Orientation [...] on file Medical Devices Implanted Type Area Economics Professor Device Identifier Shelf Expiration Date Model / Serial / Lot Lifenet [id number] Arthroflex [id number] Allograft Thk2.5-3.5mm Graft Soft Tissue - [id number] Implanted:Qty: 1 on 12/14/2019 by Curtis Palma MD at [facility] Left: Foot Lifenet 06/20/2022 [id number] / / [id number] Ar[employer]rex Inc Ar-1530ps Tenodesis 3mm 8mm Handle Nursing Technician Vent Foot Ankle Screw - [id number] Implanted:Qty: 2 on 12/14/2019 by Curtis Palma MD at [facility] Left: Foot Ar[employer] Inc 07/12/2023 AR-1530PS / / Ar[employer] Ar-1530ds Bio-Tenodesis Fiberwire 2.5mm Needle Cannulated Drill Suture Pass - [id number] Implanted:Qty: 1 on 12/14/2019 by Curtis Palma MD at [facility] Left: Foot [employer] 07/12/2024 AR-1530DS / / Insurance [facility]/PPO Address: [address] [address] [facility] HMO/PPO Address: [facility] [address] [place], [place] [id number] Care Teams Publications Manager Relationship Specialty Start Date End Date Barron Castorena MD [address] [place] [address] PCP - General Internal Medicine 08/03/19
--- OUTSIDE RECORDS SUMMARY | 2025-02-06 07:43 | XMS_ITS | Referral Summary ---
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 Gender Identity Not on file Sexual Orientation [...] on file Medical Devices Implanted Type Area Access Coordinator Device Identifier Shelf Expiration Date Model / Serial / Lot Lifenet [id number] Arthroflex [id number] Allograft Thk2.5-3.5mm Graft Soft Tissue - [id number] Implanted:Qty: 1 on 12/14/2019 by Curtis Palma MD at [facility] Left: Foot Lifenet 06/20/2022 [id number] / / [id number] Ar[employer] Inc Ar-1530ps Tenodesis 3mm 8mm Handle Bean Weigher Vent Foot Ankle Screw - [id number] Implanted:Qty: 2 on 12/14/2019 by Curtis Palma MD at [facility] Left: Foot [employer] Inc 07/12/2023 AR-1530PS / / Ar[employer] Ar-1530ds Bio-Tenodesis Fiberwire 2.5mm Needle Cannulated Drill Suture Pass - [id number] Implanted:Qty: 1 on 12/14/2019 by Curtis Palma MD at [facility] Left: Foot [employer] 07/12/2024 AR-1530DS / / Insurance [facility] HMO/PPO Address: [place] [address] [facility] [place]/[place] [address] Care Teams Stem Roller Relationship Specialty Start Date End Date Barron Castorena MD [address] [place] [address] PCP - General Internal Medicine 08/03/19
--- NOTE | 2025-02-06 07:59 | ECHO_ITS ---
Patient Info Name: Gabby Bolivar Age: 64 years : 1960 Gender: Female Ht: 66 in Wt: 162 lbs BSA: 1.86 m2 HR: 57 bpm BP: 153 / 74 mmHg Technical Quality: Good Exam Date: 02/06/2025 8:13 AM Patient Status: O Admit Date: 02/06/2025 Exam Type: CA echo doppler color flow Complete two-dimensional, color flow and Doppler transthoracic echocardiogram is performed. Alteration Specialist: Adriana Meyers Attending Provider: Samara Muñiz Summary 1. Complete two-dimensional, color flow and Doppler transthoracic echocardiogram is performed. 2. Left ventricular chamber dimension is normal. 3. Left ventricular systolic function is normal, estimated at 60-65. 4. The left ventricular diastolic function is grade I diastolic dysfunction. 5. E/e' 11 is mildly elevated. 6. There is mild aortic valve sclerosis. 7. There is trace mitral valve regurgitation. 8. No pulmonary hypertension, estimated pulmonary arterial systolic pressure is 24 mmHg. Left Ventricle E/e' 11 is mildly elevated. Left ventricular chamber dimension is normal. Left ventricular systolic function is normal, estimated at 60-65. The left ventricular diastolic function is grade I diastolic dysfunction. Right Ventricle Right ventricular chamber dimension is normal. Right ventricular systolic function is normal. Left Atria Left atrial chamber dimension is normal. Right Atria Right atrial chamber dimension is normal. Aortic Valve The aortic valve is trileaflet. There is mild aortic valve sclerosis. There is no aortic valve stenosis. There is no aortic valve regurgitation. Pulmonic Valve There is no pulmonic regurgitation. Mitral Valve There is no mitral valve stenosis. There is trace mitral valve regurgitation. Tricuspid Valve There is no tricuspid valve regurgitation. No pulmonary hypertension, estimated pulmonary arterial systolic pressure is 24 mmHg. Pericardium/Pleural There is no pericardial effusion. Inferior Vena Cava Normal inferior vena cava with >50% collapse upon inspiration consistent with normal right atrial pressure, 5 mmHg. Aorta The aortic root size at the sinus of Valsalva is normal. Left Ventricular Outflow Tract Name Value Normal LVOT 2D LVOT Diameter 1.9 cm LVOT Doppler LVOT Peak Velocity 116 cm/s LVOT Peak Gradient 5 mmHg LVOT Mean Gradient 3 mmHg LVOT VTI 28 cm LVOT VTI/AV VTI Ratio 0.8 LVOT Stroke Volume 78 ml LVOT CO 4.6 l/min LVOT CI 2.4 l/min/m2 Pulmonic Valve Name Value Normal RVOT Doppler RVOT Peak Velocity 66 cm/s RVOT Peak Gradient 2 mmHg PV Doppler PV Peak Velocity 129 cm/s PV Peak Gradient 7 mmHg Mitral Valve Name Value Normal MV Diastolic Function MV E Peak Velocity 96 cm/s MV A Peak Velocity 103 cm/s MV E/A 0.9 MV Decel Time (PW) 214 ms Tricuspid Valve Name Value Normal TV Regurgitation Doppler TR Peak Velocity 219 cm/s TR Peak Gradient 19 mmHg Estimated PAP/RSVP RA Pressure 5 mmHg <=5 PA Systolic Pressure 24 mmHg <36 RV Systolic Pressure 24 mmHg <36 Aorta Name Value Normal Ascending Aorta Ao Root Diameter (MM) 2.5 cm Ao Root Diam Index (MM) 1.3 cm/m2 Aortic Valve Name Value Normal AV Doppler AV Peak Velocity 169 cm/s AV Peak Gradient 11 mmHg AV Mean Gradient 5 mmHg AV VTI 37 cm AV Area (Cont Eq VTI) 2.1 cm2 >=3.0 AV Area (Cont Eq Bernard) 1.9 cm2 AV DI (Bernard) 0.69 AV Regurgitation 2D LVOT Area 2.8 cm2 Ventricles Name Value Normal LV Dimensions 2D/MM IVS Diastolic Thickness (2D) 0.8 cm 0.6-1.0 IVS Diastole Thickness (MM) 0.7 cm 0.6-0.9 LVID Diastole (2D) 4.5 cm 3.8-5.2 LVID Diastole (MM) 4.9 cm 3.8-5.2 LVIW Diastolic Thickness (2D) 1.0 cm 0.6-0.9 LVIW Diastolic Thickness (MM) 1.0 cm 0.6-0.9 LVID Systole (2D) 3.0 cm 2.2-3.5 LVID Systole (MM) 3.1 cm 2.2-3.5 LVOT Diameter 1.9 cm LV Mass (2D Cubed) 140.51 g 67.00-162.00 LV Mass Index (2D Cubed) 75 g/m2 43-95 Relative Wall Thickness (2D) 0.45 <=0.42 LV Mass (MM Cubed) 137.27 g 67.00-162.00 LV Mass Index (MM Cubed) 74 g/m2 43-95 Relative Wall Thickness (MM) 0.40 LV Fractional Shortening/Ejection Fraction 2D/MM LV Fractional Shortening (2D) 33 % 27-45 LV Fractional Shortening (MM) 37 % 27-45 LV EF (MM Teichholz) 67 % LV EF (2D Teichholz) 61 % LV Diastolic Volume (4C MOD) 67 ml LV EF (4C MOD) 56 % LV Diastolic Volume (2C MOD) 63 ml LV EF (2C MOD) 69 % LV Diastolic Volume (BP MOD) 66 ml 46-106 LV Diastolic Volume Index (BP MOD) 35 ml/m2 29-61 LV Systolic Volume (BP MOD) 26 ml 14-42 LV Systolic Volume Index (BP MOD) 14 ml/m2 8-24 LV EF (BP MOD) 60 % 54-74 LV Diastolic Length (4C) 7.5 cm LV Systolic Length (4C) 6.3 cm LV Stroke Volume (4C MOD) 37 ml Atria Name Value Normal LA Dimensions LA Dimension (MM) 3.4 cm 2.7-3.8 LA Volume (4C A-L) 49 ml LA Volume (BP A-L) 48 ml RA Dimensions RA Systolic Major [place] Length (4C) 5.3 cm 2.2-2.8 RA Area (4C) 15.1 cm2 <=18.0 Report Signatures
== END 2025-02-06 07:38 | disposition home or self-care (01) ==
PROVIDERS: PCP Family Medicine; Visit Provider Nurse Practitioner
DX: R06.02 Shortness of breath (principal)
CPT/HCPCS: 93306

== ENCOUNTER 2025-02-22 10:13 | Outpatient (CLI) | payer MEDICARE, SELFPAY ==
--- NOTE | 2025-02-22 10:20 | EST_ITS ---
Patient Info Name: Gabby Bolivar Age: 65 years : 1960 Gender: Female Ht: 66 in Wt: 164 lbs BSA: 1.88 m2 HR: 60 bpm BP: 132 / 67 mmHg Exam Date: 02/22/2025 10:20 AM Patient Status: O Admit Date: 02/22/2025 Exam Type: CA stress test treadmill A treadmill exercise stress test was performed. Staff Attending Provider: Abdirahman Jain DO Exercise Technologist: Amber Ross Exercise Physician: Abdirahman Jain DO Summary 1. 1. Negative John exercise stress test for ischemic ST changes by ECG criteria. However, patient achieved only 73% MPHR for age group which reduces sensitivity of the test. 2. 2. Excellent functional capacity, achieving 10 METs of workload. 3. 3. Inappropriate HR response to level of exercise suggesting chronotropic incompetence, achieving peak HR of 110 bpm. 4. 4. Appropriate HR recovery at 1 minute post exercise. 5. 5. No imaging with stress testing. 6. 6. Patient informed of the above results. Protocol: John Stress ECG Details Stage: REST Duration (min): 2 min : 14 sec Speed (mph): 0.0 Grade (%): 0 HR (bpm): 59 SBP (mmHg): 132 DBP (mmHg): 67 METS: --- Stage: REST Duration (min): 4 min : 53 sec Speed (mph): 0.0 Grade (%): 0 HR (bpm): 70 SBP (mmHg): 132 DBP (mmHg): 67 METS: --- Stage: STAGE 1 Duration (min): 1 min : 0 sec Speed (mph): 1.7 Grade (%): 10 HR (bpm): 76 SBP (mmHg): 132 DBP (mmHg): 67 METS: --- Stage: STAGE 1 Duration (min): 2 min : 0 sec Speed (mph): 1.7 Grade (%): 10 HR (bpm): 84 SBP (mmHg): 132 DBP (mmHg): 67 METS: --- Stage: STAGE 1 Duration (min): 3 min : 0 sec Speed (mph): 1.7 Grade (%): 10 HR (bpm): 88 SBP (mmHg): 151 DBP (mmHg): 57 METS: --- Stage: STAGE 2 Duration (min): 1 min : 0 sec Speed (mph): 2.5 Grade (%): 12 HR (bpm): 87 SBP (mmHg): 151 DBP (mmHg): 57 METS: --- Stage: STAGE 2 Duration (min): 2 min : 0 sec Speed (mph): 2.5 Grade (%): 12 HR (bpm): 91 SBP (mmHg): 129 DBP (mmHg): 57 METS: --- Stage: STAGE 2 Duration (min): 3 min : 0 sec Speed (mph): 2.5 Grade (%): 12 HR (bpm): --- SBP (mmHg): 129 DBP (mmHg): 57 METS: --- Stage: STAGE 3 Duration (min): 1 min : 0 sec Speed (mph): 3.4 Grade (%): 14 HR (bpm): 102 SBP (mmHg): 129 DBP (mmHg): 57 METS: --- Stage: STAGE 3 Duration (min): 2 min : 0 sec Speed (mph): 3.4 Grade (%): 14 HR (bpm): 110 SBP (mmHg): 129 DBP (mmHg): 57 METS: --- Stage: STAGE 3 Duration (min): 2 min : 25 sec Speed (mph): 3.4 Grade (%): 14 HR (bpm): 109 SBP (mmHg): 129 DBP (mmHg): 57 METS: --- Stage: RECOVERY Duration (min): 0 min : 34 sec Speed (mph): 0.0 Grade (%): 0 HR (bpm): 107 SBP (mmHg): 129 DBP (mmHg): 57 METS: --- Stage: RECOVERY Duration (min): 1 min : 34 sec Speed (mph): 0.0 Grade (%): 0 HR (bpm): 93 SBP (mmHg): 129 DBP (mmHg): 57 METS: --- Stage: RECOVERY Duration (min): 2 min : 34 sec Speed (mph): 0.0 Grade (%): 0 HR (bpm): 84 SBP (mmHg): 129 DBP (mmHg): 57 METS: --- Stage: RECOVERY Duration (min): 3 min : 34 sec Speed (mph): 0.0 Grade (%): 0 HR (bpm): 77 SBP (mmHg): 190 DBP (mmHg): 78 METS: --- Stage: RECOVERY Duration (min): 4 min : 34 sec Speed (mph): 0.0 Grade (%): 0 HR (bpm): 72 SBP (mmHg): 190 DBP (mmHg): 78 METS: --- Stage: RECOVERY Duration (min): 5 min : 9 sec Speed (mph): 0.0 Grade (%): 0 HR (bpm): 73 SBP (mmHg): 175 DBP (mmHg): 74 METS: --- Rest HR: 70 bpm Peak HR: 111 bpm Rest Sys BP: 132 mmHg Peak Sys BP: 190 mmHg Max Pred HR: 153 bpm % Max Pred HR: 73 % Target HR: 130 bpm Max RPP: 21,090 bpm*mmHg Torres Score: 2 Termination Reason: Maximal effort/unable to continue Cardiac Symptoms: Shortness of breath Max ST Seg Deviation: -1.30 mm Total Time: 8 min : 25 sec Rest Toth BP: 67 mmHg Peak Toth BP: 78 mmHg Angina Score: None Total METS: 10.3 Resting ECG Sinus rhythm. Stress ECG No ST changes. Arrhythmias None. Report Signatures
--- OUTSIDE RECORDS SUMMARY | 2025-02-22 10:22 | XMS_ITS | Clinical Summary ---
Author Organization [facility] Address [address] [facility], [address] [address] Phone Care Team Providers Care Marriage And Family Teacher Name Role Phone Luis Gil MD Primary Care Provider [phone] Allergies No known active allergies Medications diphenhydrAMINE [...] age to complete this topic Care Teams Marriage And Family Teacher Relationship Specialty Start Date End Date Luis Gil MD PCP - General Internal Medicine 02/03/18
--- OUTSIDE RECORDS SUMMARY | 2025-02-22 10:22 | XMS_ITS | Continuity of Care Document ---
Author Organization [facility] Address [address] [place] [address] Phone Care Team Providers Care Volcanologist Name Role Phone Casarez OD, Tru Unavailable Unavailable Advance Directives Directive Yes / No Effective Date File Name No Information Encounters Encounter Description Practice Location Reason(s) For Visit Diagnoses Date Provider Providers Copied on Encounter [facility], [address], [place], [place], [id number], [place] tel:[phone] [facility] No Information Sep- 7-200 1 Casarez OD Tru. [address] , [address], [place], [address], [place]. tel:[phone] Family History Family Member Type Diagnosis Age At Onset No Information Payers Payer name Insurance type Covered republican ID Authoriza tion(s) No Information Social History [...]
--- OUTSIDE RECORDS SUMMARY | 2025-02-22 10:22 | XMS_ITS | Patient Health Record ---
Author Organization [facility] Address [address] [place], [place] [id number] Care Team Providers Care Music Typographer Name Role Phone SUSSY COOK Unavailable [phone] Luis Gil Unavailable Unavailable Reason For Referral No Information Plan Of Treatment No Information Insurance Providers Payer Name Payer Address Payer Phone Subscriber Number Group Number Insured Name Patient Relationship to Insured Coverage Start Date Coverage End Date [facility] [address] [address] [place] [address] [id number] OPAL SHERIDAN Self - patient is the insured
--- OUTSIDE RECORDS SUMMARY | 2025-02-22 10:23 | XMS_ITS | Clinical Summary ---
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 Gender Identity Not on file Sexual Orientation [...] on file Medical Devices Implanted Type Area Hardener Helper Device Identifier Shelf Expiration Date Model / Serial / Lot Lifenet [id number] Arthroflex [id number] Allograft Thk2.5-3.5mm Graft Soft Tissue - [id number] Implanted:Qty: 1 on 12/14/2019 by Curtis Palma MD at [facility] Left: Foot Lifenet 06/20/2022 [id number] / / [id number] [employer] Ar-1530ps Tenodesis 3mm 8mm Handle Account Services Analyst Vent Foot Ankle Screw - [id number] Implanted:Qty: 2 on 12/14/2019 by Curtis Palma MD at [facility] Left: Foot [employer] 07/12/2023 AR-1530PS / / [employer] Ar-1530ds Bio-Tenodesis Fiberwire 2.5mm Needle Cannulated Drill Suture Pass - [id number] Implanted:Qty: 1 on 12/14/2019 by Curtis Palma MD at [facility] Left: Foot [employer] 07/12/2024 AR-1530DS / / Insurance Care Teams Studio Operator Relationship Specialty Start Date End Date Barron Castorena MD [address] [place] [address] PCP - General Internal Medicine 08/03/19
== END 2025-02-22 10:14 | disposition home or self-care (01) ==
LOC: ANHCARD 10:13
PROVIDERS: PCP Family Medicine; Visit Provider Internal Medicine Cardiovascular Disease
DX: R07.9 Chest pain, unspecified (principal)
CPT/HCPCS: 93017

== ENCOUNTER 2025-04-20 10:26 | Outpatient (CLI) | payer MEDICARE, SELFPAY ==
--- NOTE | ~2025-04-20 | DEXA_ITS ---
Bone Density Report Name: OPAL CAREY Age: 65 Sex: Female Ethnicity: White Date of : 1960 Indication: postmenopausal; screening for osteoporosis; parental hip fracture; height loss; hysterectomy; Referring Provider: Samara Muñiz Study: Bone densitometry was performed. Exam Date: April 20, 2025 Accession number: [id number] Bone Density: Region BMD T-score Z-score Classification AP Spine(L1-L4) 1.104 0.5 2.4 Normal World Health Organization criteria for BMD impression classify patients as: Normal (T-score at or above -1.0), Osteopenia (T-score between -1.0 and -2.5), or Osteoporosis (T-score at or below -2.5). Previous Exams: -- Region Exam Age BMD T-score BMD Change BMD Change Date g/cm2 vs Baseline vs Previous -- AP Spine (L1-L4) 04/20/2025 65 1.104 0.5 -4.8%* -2.6%* 07/29/2019 59 1.133 0.8 -2.3%* -2.3%* 01/17/2011 50 1.159 1.0 -- *Denotes significance at 95% confidence level, LSC for AP Spine = 0.022 g/cm2 Clinical Information Provided by Patient: Parent has had a hip fracture Has used the following medications: Vitamin D, Calcium Has the following medical conditions: Hysterectomy Patient maximum height was 67 Menopause Age: 41 Drinks caffeinated beverages Onset of menses at age 15 Number of children 2 Impression: The patient has normal bone mass. The patient has risk factors, including: parental hip fracture. The BMD for the AP Spine (L1-L4) decreased, changing by -2.6% since the last DXA exam. Discussion: LOW RISK OF FRACTURE; BONE DENSITY IS WELL ABOVE THE MINIMUM DESIRABLE LEVEL AND ABOVE AVERAGE FOR AGE AND SEX AT ALL SKELETAL SITES TESTED. This person's bone density is above expected limits for age and sex. This is rarely clinically significant, but should be pursued if there are significant musculoskeletal complaints. The patient should follow a healthful lifestyle (good nutrition with adequate calcium and vitamin D, and appropriate weight-bearing exercise). Follow-Up: Consider repeating this study in 3 to 4 years to reassess this patient's status, or sooner if there is some new clinical indication. Reported by: MARIBELL on 04/20/2025 10:45:00 AM. Reviewed, dictated and finalized at location A.
== END 2025-04-20 10:27 | disposition home or self-care (01) ==
PROVIDERS: PCP Family Medicine; Visit Provider Nurse Practitioner
DX: M85.88 Other specified disorders of bone density and structure, other site (principal)
CPT/HCPCS: 77080

== ENCOUNTER 2025-06-19 12:14 | Outpatient (CLI) | payer MEDICARE, SELFPAY ==
--- NOTE | ~2025-06-19 | MM_ITS ---
EXAMINATION: MM screening shabana BI w olga HISTORY: Screening. TECHNIQUE: Craniocaudal and mediolateral oblique 3-D tomosynthesis images were obtained and synthetic 2-D images were generated. CAD analysis was submitted and interpreted. COMPARISON: 2023, 2022, and 2021. BREAST PARENCHYMAL COMPOSITION: Not Dense: There are scattered areas of fibroglandular FINDINGS: No suspicious masses are seen. There are no suspicious calcifications. No unexplained architectural distortion is seen. There are no skin or nipple abnormalities identified. There is no adenopathy seen on the images submitted. IMPRESSION: No mammographic or sonographic evidence to suggest malignancy is seen. The patient may return to screening mammography as per ACR guidelines. BI-RADS 1 - Negative. Reviewed, dictated and finalized at location B. L ANIMAL VETERINARIAN IMPRESSION: No mammographic or sonographic evidence to suggest malignancy is seen. The traci ent may return to screening mammography as per ACR guidelines. BI-RADS 1 - Negative.
== END 2025-06-19 12:15 | disposition home or self-care (01) ==
PROVIDERS: PCP Family Medicine; Visit Provider Family Medicine
DX: Z12.31 Encounter for screening mammogram for malignant neoplasm of breast (principal)
CPT/HCPCS: 77063; 77067